=== PATIENT | male | born 1965 | race Caucasian/White ===

== ENCOUNTER 2017-07-17 01:26 | Emergency (ER) | payer OTHER | END 2017-07-17 01:45 | disposition home or self-care (01) | LOC: ER 01:26 | DX: S61.239A Puncture wound without foreign body of unspecified finger without damage to nail, initial encounter (principal); Z87.442 Personal history of urinary calculi; Z86.73 Personal history of transient ischemic attack (TIA), and cerebral infarction without residual deficits; W27.3XXA Contact with needle (sewing), initial encounter; Y93.89 Activity, other specified; Y92.89 Other specified places as the place of occurrence of the external cause; Y99.8 Other external cause status | CPT/HCPCS: 99281 ==